=== PATIENT | female | born 1975 ===

== ENCOUNTER 2025-05-01 11:45 | Inpatient (IN) | payer OTHER ==
[~2025-05-01] VITALS: Ht 152.4 cm; Wt 98.9 kg
[2025-05-01 13:30] LABS: COVID-19 AG NEGATIVE (NEGATIVE)
[2025-05-01] MEDS ORDERED: AMLODIPINE-OLM1 EAC2 (14:07)
[2025-05-01] MEDS ORDERED: COZAAR100 MG PO (14:07)
[2025-05-07] MEDS ORDERED: MEDROLPACK PO (13:51)
[2025-05-07] MEDS ORDERED: PERCOCET 5-3251 EACH PO (13:51)
[2025-05-07] MEDS ORDERED: BACTRIM DS TAB1 EACH PO (13:51)
[2025-05-07] MEDS ORDERED: GABAPENTIN100 M2 PO (13:51)
[2025-05-07] MEDS ORDERED: ZOFRAN8 MG PO (13:52)
[2025-05-07] MEDS ORDERED: NEURONTIN800 MG PO (13:52)
[2025-05-07] MEDS ORDERED: COLACE100 MG PO (13:54)
[2025-05-07] MEDS ORDERED: VANCOMYCIN HCL 1,000 MG VIAL ONE ×2 (15:20→16:54)
[2025-05-07] MEDS ORDERED: METHYLPREDNISOLONE ACETATE 80 MG/ML VIAL ONE (16:51)
[2025-05-07] MEDS ORDERED: METHYLPREDNISOLONE SOD SUCC 125 MG VIAL ONE (16:54)
[2025-05-07] MEDS ORDERED: 0.9 % SODIUM CHLORIDE 1,000 ML IV SCH (18:15)
[2025-05-07] MEDS ORDERED: ENALAPRILAT DIHYDRATE 1.25 MG/ML VIAL IV PRN (18:15)
[2025-05-07] MEDS ORDERED: PROMETHAZINE HCL 50 MG/ML AMPUL IM PRN (18:15)
[2025-05-07] MEDS ORDERED: IOVERSOL IV ONE (19:15)
[2025-05-07] MEDS ORDERED: ACETAMINOPHEN 500 MG GEL..CAP PO SCH (20:00)
[2025-05-07] MEDS ORDERED: VANCOMYCIN HCL 1,000 MG VIAL IV ONE (20:15)
[2025-05-07] MEDS ORDERED: METHYLPREDNISOLONE SOD SUCC 125 MG VIAL IV ONE (20:15)
[2025-05-07] MEDS ORDERED: VANCOMYCIN HCL 1,000 MG VIAL SPEPROC ONE (20:15)
[2025-05-07] MEDS ORDERED: VANCOMYCIN HCL 1,000 MG VIAL IR ONE (20:15)
[2025-05-07] MEDS ORDERED: METHYLPREDNISOLONE ACETATE 80 MG/ML VIAL IM ONE (20:15)
[2025-05-07] MEDS ORDERED: VANCOMYCIN HCL 1,000 MG VIAL IV SCH (21:00)
[2025-05-07] MEDS ORDERED: MORPHINE SULFATE 4 MG/ML CARTRIDGE IV SCH (21:00)
[2025-05-07] MEDS ORDERED: GABAPENTIN 800 MG TABLET PO SCH (21:00)
[2025-05-07] MEDS ORDERED: MORPHINE SULFATE 4 MG/ML VIAL IV ONE (23:05)
[2025-05-08] MEDS ORDERED: SODIUM CHLORIDE 0.45 % 1,000 ML IV SCH
[2025-05-08] MEDS ORDERED: METHYLPREDNISOLONE SOD SUCC 125 MG VIAL ONE (00:10)
[2025-05-08] MEDS ORDERED: ACETAMINOPHEN 500 MG GEL..CAP PO ONE (00:19)
[2025-05-08] MEDS ORDERED: METHYLPREDNISOLONE SOD SUCC 125 MG VIAL IV SCH (01:00)
[2025-05-08 03:40] VITALS: BP 128/82; O2SAT 100
[2025-05-08] MEDS ORDERED: OxyCODONE HCL 5 MG TABLET (ROXICODONE) PO PRN (06:01)
[2025-05-08] MEDS ORDERED: VANCOMYCIN HCL 1,000 MG VIAL ONE ×2 (06:55→15:26)
[2025-05-08 07:42] LABS: BASO % 0.1 % (0.1-1.2); HEMATOCRIT 41.7 % (34.1-44.9); HEMOGLOBIN 14.4 g/dL (11.2-15.7); LYMPH # 0.94 (1.18-3.74); LYMPH % 5.7 % (19.3-53.1); MEAN CORPUSCULAR HEMOGLOBIN 31.3 pg (25.6-32.2); MONO % 1.8 % (4.7-12.5); NEUT # 15.25 (1.56-6.13); PLATELET COUNT 339 K/uL (163-369); RED CELL DISTRIBUTION WIDTH 12.6 % (11.6-14.4)
[2025-05-08 08:34] VITALS: BP 122/76; O2SAT 95
[2025-05-08 08:34] LABS: CREATININE SERUM 0.85 mg/dL (0.55-1.02); GFR 70.51; POTASSIUM 4.66 mEq/L (3.5-5.1)
[2025-05-08] MEDS ORDERED: DOCUSATE SODIUM 100MG CAP PO SCH (09:00)
[2025-05-08] MEDS ORDERED: LOSARTAN POTASSIUM 100 MG TABLET PO SCH (09:00)
[2025-05-08] MEDS ORDERED: FAMOtidine 20 MG TABLET PO SCH (09:00)
[2025-05-08] MEDS ORDERED: TAMSULOSIN HCL 0.4 MG CAP PO SCH (09:00)
[2025-05-08] MEDS ORDERED: AMLODIPINE BESYLATE 5 MG TABLET PO SCH (09:00)
[2025-05-08 09:02] VITALS: O2SAT 96
[2025-05-08 13:05] LABS: COVID-19 AG NEGATIVE (NEGATIVE)
[2025-05-08 13:30] VITALS: O2SAT 97
[2025-05-08 16:05] VITALS: BP 132/76; O2SAT 97
[2025-05-08 17:00] VITALS: O2SAT 98
[2025-05-09 00:14] VITALS: BP 115/66; O2SAT 100
[2025-05-09 08:15] VITALS: BP 133/79; O2SAT 97
== END 2025-05-09 14:47 | disposition home or self-care (01) | DRG 402 ==
LOC: SURH 05-07 11:45 → O/R 05-07 14:25 → SURH 05-07 16:45 → SURG 05-07 23:20
PROVIDERS: ADMIT Orthopaedic Surgery Orthopaedic Surgery of the Spine; ATTEND Orthopaedic Surgery Orthopaedic Surgery of the Spine
PROC: 0SG3071 Fusion of Lumbosacral Joint with Autologous Tissue Substitute, Posterior Approach, Posterior Column, Open Approach (ICD-10-PCS; 2025-05-07)
PROC: 0ST40ZZ Resection of Lumbosacral Disc, Open Approach (ICD-10-PCS; 2025-05-07)
PROC: 0QB30ZZ Excision of Left Pelvic Bone, Open Approach (ICD-10-PCS; 2025-05-07)
PROC: 07DR0ZZ Extraction of Iliac Bone Marrow, Open Approach (ICD-10-PCS; 2025-05-07)
PROC: 4A1104G Monitoring of Peripheral Nervous Electrical Activity, Intraoperative, Open Approach (ICD-10-PCS; 2025-05-07)
PROC: XRGD0R7 Fusion of Lumbosacral Joint using Custom-Made Anatomically Designed Interbody Fusion Device, Open Approach, New Technology Group 7 (ICD-10-PCS; principal; 2025-05-07 16:45)
PROC: 4A12X4Z Monitoring of Cardiac Electrical Activity, External Approach (ICD-10-PCS; 2025-05-08)
DX: M43.17 Spondylolisthesis, lumbosacral region (principal); M54.17 Radiculopathy, lumbosacral region